=== PATIENT | female | born 1940 | race Caucasian/White ===

== ENCOUNTER 2020-04-29 15:43 | Emergency (ER) | payer OTHER ==
[~2020-04-29] VITALS: Ht 160 cm; Wt 64.3 kg
[~2020-04-29 15:43] MED LIST: EPINEPHRINE SYRINGE 0.1 MG/ML, 10ML ONE; MIDAZOLAM 1 MG/ML, 5ML ONE; PROPOFOL 10 MG/ML, 100ML IV ONE; SODIUM BICARB 7.5%, 50ML SYRINGE ONE; SUCCINYLCHOLINE 20 MG/ML, 10ML ONE
[2020-04-29] MEDS ORDERED: SODIUM CHLORIDE FLUSH 10ML SYR IVF ONE (16:30)
--- NOTE | 2020-04-29 16:32 | NUR ---
CODE DANIELITO CALLED @ [phone]
[2020-04-29] MEDS ORDERED: SODIUM BICARB 8.4%, 50ML SYRINGE ONE (16:59)
[2020-04-29] MEDS ORDERED: CODE BLUE RESPONSE XX ONE (16:59)
--- NOTE | 2020-04-29 17:01 | NUR ---
call to medical office secretary details given. awaiting call back.
--- NOTE | 2020-04-29 17:09 | NUR ---
call placed to [facility].
--- NOTE | 2020-04-29 17:19 | NUR ---
spoke with medical accounts receivable specialist. at this time pt is to be transported to [facility] for identification of family.
--- NOTE | 2020-04-29 17:28 | NUR ---
summary of events pt presented to er for 2 days of sob at home that was increasing. pt placed in room 29. this rn meets remsa in room. pt presents with labored respirations and is on 6 lpm o2 via nasal cannula by ems. pt speaks in 1 to 2 word sentences and states she can't breath. monitoring equipment attached to pt. o2 sat of 96% on 6 lpm. rn notified md of pt condition and md to room. after assessment of pt and rectal temp which resulted 97.6 temp. pt was sat upright to aide in breathing. at this time pt stopped breathing but had a pulse. decision was made to intubate pt. charge nurse was made aware. crash cart in room. pt recieving bvm ventilations by tech. unable to obtain bp. manual attempted by this rn. unable to obtain bp. pulse checks attempted by staff at femoral artery. unable to feel. cpr initiated at 1630 with 1 mg epinephrine given. pea rhythm. 1633 rhythm pea 1 amp bicarb given.1635 intubated 7.5 tube end tidal confirmed placement. 1635 io placement after iv access failed in right arm. 1 mg epinephrine given io. 2 io placed 1636 pea rhythm. 1638 1 amp bicarb given io. 1640 rhythm pea with us cardiac standstill
[2020-04-29 17:57] VITALS: BP 164/113
== END 2020-04-29 19:21 | disposition expired ==
LOC: ED 17:48
DX: I46.9 Cardiac arrest, cause unspecified (principal); R57.0 Cardiogenic shock; I11.0 Hypertensive heart disease with heart failure; I50.9 Heart failure, unspecified; R00.0 Tachycardia, unspecified; M79.89 Other specified soft tissue disorders
CPT/HCPCS: 31500; 71045; 92950; 93005; 99285; J0330; J2250; J2704; 94002